=== PATIENT | female | born 1970 | race Caucasian/White ===

== ENCOUNTER → 2016-10-30 | Outpatient (CLI) | payer OTHER ==
[~2016-10-30] MED LIST: ALBU18002 INH; ATOR10TA88 PO; CETI10TA84 PO; CHOL2000 PO; HYDR1SOL10 PO; LEVO100T PO; LEVO112T2 PO; METF750T PO; NITR-5 PO; RIZA10TA18 PO
[2016-10-30 10:08] LABS: ALT/SGPT 31 U/L (12-78); BLOOD UREA NITROGEN 17 mg/dl (7-18); BUN/CREATININE RATIO 18.9 (10-20); CALCIUM 9.1 mg/dl (8.5-10.1); CARBON DIOXIDE 33 mmol/L (21-32); CHLORIDE 104 mmol/L (98-107); CHOLESTEROL 183 mg/dl (0-200); CREATININE 0.91 mg/dl (0.60-1.20); GLUCOSE 98 mg/dl (70-99); POTASSIUM 4.4 mmol/L (3.5-5.1); SODIUM 143 mmol/L (136-145); TRIGLYCERIDES 150 mg/dl (0-150); VERY LOW DENSITY LIPOPROT CALC 30 mg/dl
[2016-10-30 10:10] LABS: INSULIN FASTING 27.9 mU/L (3-25)
[2016-10-30 10:17] LABS: ALKALINE PHOSPHATASE 87 U/L (45-117); AST/SGOT 14 U/L (15-37); CHOLESTEROL/HDL RATIO 3.7; HDL CHOLESTEROL 50 mg/dl; LDL CHOLESTEROL CALCULATED 103 mg/dl; THYROID STIMULATING HORMONE 0.126 uIu/ml (0.300-4.500)
[2016-11-02 15:21] LABS: ILGF1 Z SCORE FEMALE 0.4 SD (-2.0 - +2.0); INSULIN LIKE GROWTH FACTOR-I 174 ng/mL (52-328)
== END | disposition home or self-care (01) ==
LOC: C.LAB1850 07:32
PROVIDERS: ATTEND Internal Medicine Endocrinology, Diabetes & Metabolism
DX: E66.01 Morbid (severe) obesity due to excess calories (principal); E03.9 Hypothyroidism, unspecified; M79.1 Myalgia

== ENCOUNTER → 2016-11-07 | Outpatient (CLI) | payer OTHER ==
[~2016-11-07] MED LIST changes: +ATOR10TA82 PO; -ATOR10TA88 PO
== END | disposition home or self-care (01) ==
LOC: C.LABMFLN 11-07 07:28
PROVIDERS: ATTEND Internal Medicine Endocrinology, Diabetes & Metabolism
DX: E66.01 Morbid (severe) obesity due to excess calories (principal)

== ENCOUNTER → 2016-11-30 | Outpatient (CLI) | payer OTHER ==
[~2016-11-30] MED LIST changes: -ATOR10TA82 PO; +ATOR10TA88 PO; -HYDR1SOL10 PO
== END | disposition home or self-care (01) ==
LOC: C.LABSPEC 12:55
PROVIDERS: ATTEND Family Medicine
DX: J02.9 Acute pharyngitis, unspecified (principal)

== ENCOUNTER → 2017-02-05 | Outpatient (CLI) | payer OTHER ==
[~2017-02-05] MED LIST changes: +ATOR10TA82 PO; -ATOR10TA88 PO
[2017-02-05 14:08] LABS: HEMATOCRIT 37.6 % (37-47); MEAN CELL VOLUME 85.5 fL (80-100); MEAN CORPUSCULAR HEMOGLOBIN 30.9 pg (25-34); MEAN CORPUSCULAR HGB CONC 36.2 g/dl (32-36); MEAN PLATELET VOLUME 9.3 fL (7.4-10.4); PLATELET COUNT 273 K/uL (130-400); WHITE BLOOD COUNT 4.85 K/uL (4.8-10.8)
[2017-02-05 14:27] LABS: CALCIUM 9.2 mg/dl (8.5-10.1)
[2017-02-05 14:32] LABS: ALT/SGPT 45 U/L (12-78); BLOOD UREA NITROGEN 14 mg/dl (7-18); BUN/CREATININE RATIO 15.3 (10-20); CARBON DIOXIDE 28 mmol/L (21-32); CHLORIDE 106 mmol/L (98-107); CHOLESTEROL 204 mg/dl (0-200); CREATININE 0.89 mg/dl (0.60-1.20); GLUCOSE 97 mg/dl (70-99); SODIUM 142 mmol/L (136-145); TRIGLYCERIDES 103 mg/dl (0-150); VERY LOW DENSITY LIPOPROT CALC 21 mg/dl
[2017-02-05 14:42] LABS: ALKALINE PHOSPHATASE 76 U/L (45-117); AST/SGOT 27 U/L (15-37); HDL CHOLESTEROL 51 mg/dl; LDL CHOLESTEROL CALCULATED 132 mg/dl; THYROID STIMULATING HORMONE 0.065 uIu/ml (0.300-4.500)
[2017-02-05 14:47] LABS: EOSINOPHIL % 6.1 %; LYMPH ABS # 1.47 K/uL (1.2-3.4); LYMPHOCYTE % 30.4 %; NEUTROPHILS % 60.9 %
[2017-02-05 15:03] LABS: MDIFF REQUEST DONE
== END | disposition home or self-care (01) ==
LOC: C.LABSPEC 13:11
PROVIDERS: ATTEND Family Medicine
DX: Z00.00 Encounter for general adult medical examination without abnormal findings (principal); E07.89 Other specified disorders of thyroid

== ENCOUNTER → 2017-04-11 | Outpatient (CLI) | payer OTHER ==
[~2017-04-11] MED LIST changes: -ATOR10TA82 PO; +ATOR10TA88 PO
--- NOTE | 2017-04-11 12:47 | MAMMOGRAPHY REPORT ---
BILATERAL DIGITAL SCREENING MAMMOGRAM TOMOSYNTHESIS WITH CAD: 04/11/2017 CLINICAL HISTORY: Routine screening. Patient has no complaints. TECHNIQUE: Breast tomosynthesis in addition to standard 2D mammography was performed. Current study was also evaluated with a Computer Aided Detection (CAD) system. COMPARISON: Comparison is made to exams dated: 04/09/2016 mammogram, 03/31/2015 mammogram, and 4 mammogram - [facility]. BREAST COMPOSITION: There are scattered areas of fibroglandular density in both breasts. FINDINGS: No suspicious masses, calcifications, or areas of architectural distortion are noted in ei ther breast. There has been no significant interval change compared to prior exams. IMPRESSION: ACR BI-RADS CATEGORY 1: NEGATIVE There is no mammographic evidence of malignancy. A 1 year screening mammogram is recommended. The pa tient will receive written notification of the results. Approximately 10% of breast cancers are not detected with mammography. A negative mammographic report should not delay biopsy if a clinically suggestive mass is present. Richelle Nickerson M.D. ah/:04/11/2017 07:49:38 Auto Washer: Tati Esquivel [facility] letter sent: Normal 1/2 BI-RADS Code: ACR BI-RADS Category 1: Negative
== END | disposition home or self-care (01) ==
LOC: C.MAMM 07:24
PROVIDERS: ATTEND Family Medicine
DX: Z12.31 Encounter for screening mammogram for malignant neoplasm of breast (principal)

== ENCOUNTER → 2017-04-12 | Outpatient (CLI) | payer OTHER ==
--- NOTE | 2017-04-13 06:13 | PAP/PSG TECHNICIAN REPORT ---
[facility] Metal Die Finisher Polysomnogram Report Study name: None Report date: 04/13/2017 Study date: 04/12/2017 Referring Physician: BRENDAN Ambriz M.D. Name: NINA OLGUIN Interpreting Physician: Brain Driver D.O. Date of : 1970 Metal Die Finisher: Becky Hollis, PSGT. Sex: Female Age: 47 StudyType: PSG Weight: 213 lbs Height: 47 years, Height 5' 5" Neck Circum: BMI: 35.44 Medications: MAXALT 10 MG, LEVOXYL 112 MCG, MACROBID 100 MG, ALBUTEROL 90 MCG. Patient History 47 YR. OLD FEMALE WHOM HAD UPPP SURGERY IN THE PAST, IS HERE FOR A TITRATION SLEEP STUDY.SHE HAD A BASELINE SLEEP STUDY DONE IN [place] AND STATED THAT SHE HAD MILD TO MODERATE MARIA DEL CARMEN ALONG WITH OXYGEN DESATURATIONS LOW 85 %. Parameters Monitored NPSG: E1-M2, E2-M1, Fp1-M2, Fp2-M1, F3-M2, F4-M2, F4-M1, C3-M2, C4-M2, C4-M1, O1-M2, O2-M2, O2-M1, T3-M2, T4-M1, P3-M2, P4-M1, CHIN1, CHIN2, HR, EKG, Legs, PFLOW, SNOR, FLOW, CFLOW, Tidal Volume, THOR, ABDO, SpO2, PLTH, CPRESS, ETCO2 Wave, ETCO2, pH Sleep Architecture Sleep Stages Time at Lights Off 10:59:02 PM STAGES Time (min.) TST (%) Time at Lights On 5:25:32 AM Wake 26.0 -- Total Recording Time (TRT) 387.50 min. N1 10.0 3 Total Sleep Period (TSP) 364.5 min. N2 165.0 46 Total Sleep Time (TST) 360.5min. N3 15.0 4 Awake Time 27.0 min. REM 170.5 47 Wake after Sleep Onset 13.5 min. Sleep Efficiency (SE) 93 % Sleep Onset Latency (BRYAN) 12.5 min. Number of Stage 1 Shifts None Awakenings 3 Stage Changes 19 Number of REM periods 3 REM 170.5 47 REM Latency 57.0 min. NREM 190.0 53 Body Position Analysis Supine Right Left Side Prone Vertical Total Sleep Time (min.) 0.0 360.5 0.0 360.50 0.0 0.8 Total Sleep Time (%) 0% 100% 0% 100 0% N/A% Total Sleep Time REM (min.) 0.0 170.5 0.0 None 0.0 0.0 Total Sleep Time NREM (min.) 0.0 190.0 0.0 None 0.0 0.0 Intermittent Wake (min.) 0.0 25.2 0.0 None 0.0 0.8 Total Sleep Period (%) 0% None None None None None Arousals Myoclonus (PLM) * Events Count Index Events Count Index Spontaneous 29 5 Events Awake (PLMW) 0 0.0 Respiratory 0 0.0 Events Asleep w/ Arousal (PLMA) 12 2.0 PLM 12 2 Events Asleep w/o Arousal (PLMS) 99 16.5 Snoring 2 0 Total Asleep 111 18.5 Total 43 7 Total 111 17 Respiratory Analysis * CA OA MA CH H RERA Total Count 2 0 0 0 4 2 6 Index 0.3 0.0 0.0 0 0.7 0 1.3 Mean Duration 10.9 0.0 0.0 0.00 14.7 17.3 14.4 Longest Duration 14.0 0.0 0.0 0.00 0.0 18.8 19.2 Respiratory Event Summary Total Supine ~Supine Right Left Prone REM NREM Apneas Count 2 N/A 2 2 N/A N/A 1 1 Index 0.3 N/A 0 0.3 N/A N/A 0 0 Hypopneas (4% Desat) Count 4 N/A 4 4 N/A N/A 1 3 Index 0.7 N/A 1 0.7 N/A N/A 0.4 0.9 Apneas & All Hypopneas Count 6 N/A 6 6 N/A N/A 2 4 Index 1.0 N/A 1 1 N/A N/A 0.7 1.3 Respiratory Events (Ic Design Engineer+All Hyp+RERA) Count 6 N/A 8 8 N/A N/A 2 4 Index 1.3 N/A 1 1.3 N/A N/A 1.1 1.6 Respiratory Related Arousal Count 0 N/A 0 0 N/A N/A 0 0 Index 0.0 N/A 0 0 N/A N/A 0 0 Snoring Analysis Supine Right Left Prone REM NREM Total Snore duration 5.9 min Snores count N/A 214 N/A N/A 37 177 214 Snore mean duration 1.6 Sec Snores index N/A 36 N/A N/A 13.0 55.9 35.6 TST with snoring (%) 1.6% Desaturation Event Summary: Minimum %SpO2 Event Count Mean/Min/Max Duration(sec.) Desaturation Index % Time In Bed > 90 13 20.8 / 7.8 / 60.0 2.1 96.6 86 - 90 2 8.4 / 7.8 / 9.0 9.1 3.4 81 - 85 0 N/A 0.0 0.0 76 - 80 0 N/A 0.0 0.0 71 - 75 0 N/A 0.0 0.0 66 - 70 0 N/A 0.0 0.0 61 - 65 0 N/A 0.0 0.0 56 - 60 0 N/A 0.0 0.0 51 - 55 0 N/A 0.0 0.0 < 50 0 N/A 0.0 0.0 Total REM NREM Awake <50% 0.0 min. 0.0 min. 0.0 min. 0.0 min. 51 - 60% 0.0 min. 0.0 min. 0.0 min. 0.0 min. 61 - 70% 0.0 min. 0.0 min. 0.0 min. 0.0 min. 71 - 80% 0.0 min. 0.0 min. 0.0 min. 0.0 min. 81 - 90% 13.2 min. 2.5 min. 10.7 min. 0.0 min. 91 - 100% 371.4 min. 167.7 min. 179.2 min. 24.5 min. Average 95 96 94 94 Minimum SpO2 87 87 87 91 Desaturation Event Index 2.0 2.5 1.9 0.0 # Desat. Events below 89% 2 1 1 N/A Time(%) with Saturation below 89% 0.1 0.1 0.0 0.0 Time(min.) with Saturation below 89% 0.4 0.3 0.1 0.0 Heart Rate Analysis End Tidal CO2 Analysis Min (bpm) Max (bpm) Average (bpm) TSP (mins) % of TSP Awake 41 104 79 Above 55 mmHg 0.0 0.0 NREM 56 102 72 50-55 mmHg 0.0 0.0 REM 55 101 68 45-50 mmHg 360.5 100.0 Overall 55 102 70 40-45 mmHg 0.0 0.0 35-40 mmHg 0.0 0.0 30-35 mmHg 0.0 0.0 Average ETCO2 0.0 Supplemental O2 Values Minimum O2 level: None Value Start Time End Time Metal Die Finisher Comments PAP Study: MS. OLGUIN slept in the right, positions. No cardiac arrhythmia or PLM's noted. No bruxism noted. CPAP was initiated at +4 CMH2O and up-titrated to an optimal level of +7 CMH2O, which nearly eliminated all respiratory events and snoring. A Medium Res Med Quattro Air was used for the titration. MS. Olguin stated, I did sleep as well as I do when I am in my own bed. The final report will be interpreted and signed by a sleep physician. The completed physician report will then be placed in the patient medical record. Therapy Event: Therapy (cm H20) 0 4 5 6 7 Total Time at Pressure (min.) 1.2 39.6 54.4 55.1 236.2 TST at Pressure (min.) 0.0 28.3 52.9 52.6 226.7 # Periods 1 1 1 1 1 Sleep Onset (min.) N/A 11.3 0.0 0.0 0.0 REM Onset (min.) N/A N/A 28.7 N/A 8.7 Sleep Efficiency % 0 71 97 95 96 Wakefulness (%) 100.0 28.5 2.8 4.5 4.0 Wakefulness (min.) 1.2 11.3 1.5 2.5 9.5 NREM 1 (%) 0.0 8.8 1.8 3.6 1.5 NREM 1 (min.) 0.0 3.5 1.0 2.0 3.5 NREM 2 (%) 0.0 62.6 39.3 91.8 28.9 NREM 2 (min.) 0.0 24.8 21.4 50.6 68.2 NREM 3 (%) 0.0 0.0 27.6 0.0 0.0 NREM 3 (min.) 0.0 0.0 15.0 0.0 0.0 REM (%) 0.0 0.0 28.5 0.0 65.6 REM (min.) 0.0 0.0 15.5 0.0 155.0 # Arousals N/A 0 6 4 33 Arousal Index N/A 0.0 6.8 4.6 8.7 # Snore N/A 1 3 41 169 Snore Index N/A 2.1 3.4 46.8 44.7 AHI N/A 2.1 3.4 1.1 0.3 AHI Supine N/A N/A N/A N/A N/A AHI Non-Supine N/A 2.1 3.4 1.1 0.3 NREM AHI N/A 2.1 3.2 1.1 0.0 REM AHI N/A N/A 3.9 N/A 0.4 RDI N/A 2.1 4.5 2.3 0.3 # Obstructive N/A 0 0 0 0 # Central Ap N/A 1 0 0 1 # Mixed N/A 0 0 0 0 # Hypopneas N/A 0 3 1 0 RERAS N/A 0 1 1 0 Total Respiratory Events N/A 1 4 2 1 Time Below SpO2 89.00% (min.) 0.0 0.0 0.4 0.0 0.0 Mean NREM SpO2 (%) N/A 92 92 95 96 Mean REM SpO2 (%) N/A N/A 92 N/A 97 Mean Sleep SpO2 (%) N/A 92 92 95 96 Min NREM SpO2 (%) N/A 90 87 91 92 Min REM SpO2 (%) N/A N/A 87 N/A 90 Position Supine (min.) 0.0 0.0 0.0 0.0 0.0 Position Non-supine (min.) 0.0 28.3 52.9 52.6 226.7 LM Index Sleep N/A 4.2 17.0 41.1 15.4 LM Index NREM N/A 4.2 9.6 41.1 10.9 LM Index REM N/A N/A 34.8 N/A 17.4 Mean Heart Rate (bpm) N/A 77 78 71 67 Min Heart Rate (bpm) N/A 72 65 63 55
--- NOTE | 2017-04-16 19:51 | Sleep Study ---
Sleep Study Report Date of Service: 04/12/2017 Sleep Study Report Clinical data: A 47-year-old female with a BMI of 35.[address] Ambriz for a titration study. The patient had a history of sleep apnea in the past. She was on nasal CPAP for about 1 year but was not comfortable. She has had a prior UPPP surgery. Her original sleep study was done elsewhere and reportedly was mild sleep apnea. This was an in-lab CPAP titration study. Sleep architecture: The total sleep period was 364.5 minutes. The total sleep time was 360.5 minutes. Sleep efficiency was normal at 93%. Sleep latency was normal at 12.5 minutes. Wake after sleep onset was 13.5 minutes. REM latency was normal at 57 minutes. Sleep consisted of stage N1 3%, stage N2 46%, stage N3 4%, and stage REM 47%. Arousal data: The patient had a total of 43 arousals including 29 spontaneous arousals, 12 PLM arousals, and 2 snoring arousals. The arousal index was 7. PLM data: The patient had 111 periodic limb movements of sleep for a PLM index of 18.5. There were 12 arousals associated with limb movements for a PLM arousal index of 2.0. EKG: The underlying cardiac rhythm was normal sinus. The cardiac rates ranged from 55 to 102 beats per minute. The average heart rate was 70 beats per minute. No significant arrhythmia was present. Respiratory data: The patient's respiratory events were treated with nasal CPAP. There was a total of 6 respiratory events including 2 central apneas and 4 hypopneas. Hypopneas were scored according to the 4% desaturation rule. The longest apnea was 14 seconds. The mean duration of the hypopneas was 14.7 seconds. The apnea -hypopnea index was normal at 1.0. The patient also had 2 RERAs. Oximetry data: The average saturation was 95%. The minimum saturation was 87%. There was only 0.4 minutes with saturations less than 89%. Actimize Architect comments: The patient slept on the right side. No cardiac arrhythmia noted. No bruxism noted. CPAP was initiated at 4 cm and up titrated to an optimal level of 7 cm. This nearly eliminated all respiratory events and snoring. A medium ResMed Quattro air was used for the titration. The patient indicated she slept as well as she does in her own bed. Impressions: 1. Obstructive sleep apnea-resolved with nasal CPAP at 7 cm Comments: The patient slept very well. Her sleep efficiency was normal. She had significant REM rebound with 47% of the night being REM sleep. There was a mild number of arousals. She did have a modest number of limb movements. This is not unusual with resolution of sleep disordered breathing. Her oxygenation was normal. Her sleep was very well consolidated. Recommendations: 1. It is suggested that the patient be started on nasal CPAP at 7 cm. 2. It is suggested that she be ordered a medium ResMed Med Quattro air mask. 3. The patient has an elevated body mass index of 35.44. A weight reduction program is advised as there is typically less sleep apnea following weight loss. 4. The patient should be seen back in follow-up between day 31 day 90 after receiving of the CPAP. Compliance data should be obtained. Copies To 1: Brain Driver DO; Maday Ambriz M.D.
== END | disposition home or self-care (01) ==
LOC: C.NEUR 20:00
PROVIDERS: ATTEND Family Medicine
DX: G47.33 Obstructive sleep apnea (adult) (pediatric) (principal)

== ENCOUNTER → 2017-05-08 | Outpatient (CLI) | payer OTHER ==
[2017-05-08 17:52] LABS: BASO % 0.5 %; BASO ABS # 0.03 K/uL (0-0.2); COMPLETE YES; EOS % 2.9 %; IG% 0.3 %; LYMPH % 28.9 %; LYMPH ABS # 1.72 K/uL (1.2-3.4); MEAN CELL VOLUME 86.5 fL (80-100); MEAN CORPUSCULAR HEMOGLOBIN 30.8 pg (25-34); MEAN CORPUSCULAR HGB CONC 35.6 g/dl (32-36); MEAN PLATELET VOLUME 9.1 fL (7.4-10.4); MONO % 9.2 %; NEUT % 58.2 %; PLATELET COUNT 239 K/uL (130-400); RED BLOOD COUNT 4.51 M/uL (4.2-5.4); WHITE BLOOD COUNT 5.95 K/uL (4.8-10.8)
[2017-05-08 17:53] LABS: PARTIAL THROMBOPLASTIN RATIO 1.1; PROTHROMBIN TIME (PATIENT) 10.7 SECONDS (9.0-12.0)
== END | disposition home or self-care (01) ==
LOC: C.LABMFLN 12:30
DX: Z01.818 Encounter for other preprocedural examination (principal)

== ENCOUNTER → 2017-05-27 | Day surgery (SDC) | payer OTHER ==
[2017-05-14 08:58] VITALS: Ht 149.9 cm; Wt 95.9 kg
[~2017-05-27] VITALS: Ht 149.9 cm; Wt 95.9 kg
[~2017-05-27] MED LIST changes: +ATROPINE SULFATE 0.1 MG/ML 5ML SYR IV PRN; +CLINDAMYCIN PHOS 150 MG/ML 2 ML VIAL IV SCH; +DEXAMETHASONE SOD INJ 4 MG/ML VIAL ONE; +EpHEDrine SULFATE INJ 50 MG/ML AMP IV PRN; +FENTANYL CITRATE INJ 50 MCG/1 ML 2 ML VIAL IV PRN; +FENTANYL CITRATE INJ 50 MCG/1 ML 2 ML VIAL ONE; +FLUMAZENIL 0.1 MG/1 ML 10 ML VIAL IV PRN; +HYDROCODONE/APAP 2.5MG/108MG ELIX 5 ML UDP PO PRN; +HYDROmorphone INJ 2 MG/ML SYR/VIAL IV PRN; +LABETALOL HCL IV 5 MG/ML 20ML IV PRN; +LACTATED RINGER'S 1000ML 1,000 ML IV SCH; -LEVO112T2 PO; +LIDOCAINE HCL 2% 2 ML VIAL (20MG/ML) ONE; +LIDOCAINE/EPINEPHRINE 1% INJ 50 ML VIAL ONE; +MEPERIDINE HCL 25 MG/ML CARP IV PRN; +MIDAZOLAM HCL 1 MG/ML 2ML VIAL ONE; +NALOXONE HCL 0.4 MG/1 ML VIAL/CARP IV PRN; +ONDANSETRON INJ 2 MG/ML 2 ML VIAL IV PRN; +ONDANSETRON INJ 2 MG/ML 2 ML VIAL ONE; +PHENYLEPHRINE 100MCG/ML 5ML SYR IV PRN; +PROPOFOL IV EMULSION 10 MG/ML 20 ML VIAL IV ONE
--- NOTE | 2017-05-27 10:43 | History & Physical Bridge - [place] ---
H&P Re-Evaluation Bridge Note: I have examined the patient, reviewed the History & Physical and in the interval since the performance of the History & Physical I have noted the following changes of clinical significance: No changes noted
--- NOTE | 2017-05-27 11:27 | [facility] Operative Report ---
Operative Report Operative Date May 27, 2017. Pre-Operative Diagnosis Soft Palate Lesions Post-Operative Diagnosis Same Procedure(s) Performed EXCISIONAL BIOPSY OF TWO SOFT PALATE LESIONS Surgeon Dr. Mao Director Energy Surgeon(s) None Estimated Blood Loss 5 mL Findings 2 PEDUNCULATED SOFT PALATE LESIONS Specimens A. Left Soft Palate Lesion B. Right Soft Palate Lesion I attest to the content of the Intraoperative Record and any orders documented therein. Any exceptions are noted below.
--- NOTE | 2017-05-27 11:29 | Discharge Instructions ---
Discharge Instructions Date of Service May 27, 2017. Admission Reason for Admission: Lesions Of Soft Palate Discharge Discharge Diagnosis / Problem: SAME Discharge Goals Goal(s): Diagnostic testing Activity Recommendations Activity Limitations: as noted below LIGHT ACTIVITY FOR 3 DAYS; NO DRIVING WHILE ON NORCO . Current Hospital Diet Patient's current hospital diet: Regular Diet Discharge Diet Recommended Diet: Regular Diet Procedures Procedures Performed: EXCISIONAL BIOPSY OF TWO SOFT PALATE LESIONS Pending Studies Studies pending at discharge: no Medical Emergencies . Who to Call and When: Medical Emergencies: If at any time you feel your situation is an emergency, please call 911 immediately. . Non-Emergent Contact Non-Emergency issues call your: Surgeon . . "Provider Documentation" section prepared by Miller Mao. . VTE Core Measure Inpt VTE Proph given/why not?: SCD's
--- NOTE | 2017-05-27 12:10 | OPERATIVE REPORT ---
DATE OF OPERATION: 05/27/2017 PREOPERATIVE DIAGNOSIS: Soft palate lesions. POSTOPERATIVE DIAGNOSIS: Soft palate lesions. PROCEDURE: Excisional biopsy of 2 soft palate lesions. SURGEON: Dr. Miller Mao. ANESTHESIA: General endotracheal. ESTIMATED BLOOD LOSS: 5 mL. FINDINGS: Two pedunculated small papillomatous lesions involving the soft palate. SPECIMENS: Right and left soft palate lesion sent off for permanent pathological assessment. COMPLICATIONS: None. INDICATIONS FOR THE PROCEDURE: The patient is a 47-year-old female who underwent tonsillectomy, adenoidectomy, uvulectomy, and septoplasty by Dr. Ambriz last year and developed some soft palate lesions superior to the uvulectomy site. They appear to be papillomatous lesions and may represent squamous papilloma versus something else. These did not look malignant, but for diagnostic purposes, I recommended excisional biopsy. She presents today for the above-mentioned procedure on an outpatient elective basis. DESCRIPTION OF PROCEDURE: After an informed consent had been obtained from the patient, the patient was wheeled to the operating room and placed on the operating table in the supine position. Monitors were placed. After induction of general endotracheal anesthesia, the table was turned 90 degrees and the patient's head and neck were gently extended. A total of 0.6 mL of 1% lidocaine with 1:100,000 epinephrine was used to inject the mucosa and submucosa surrounding the 2 pedunculated soft palate lesions. There was 1 to the left of the midline and 1 to the right of midline just superior to a uvulectomy site. After allowing adequate time for vasoconstriction and anesthesia, a #15 scalpel was used to make an elliptical incision around the 2 pedunculated soft palate lesions. These were sent separately for permanent pathologic assessment. Suction Bovie electrocautery was used to achieve adequate hemostasis. The 2 elliptical incisions were closed with 1 simple interrupted 4-0 chromic suture. An orogastric tube was placed and the stomach was suctioned free of air and stomach contents. This marked the end of the case. The patient tolerated the procedure well and there were no apparent complications. The patient was extubated and transferred to recovery room in stable condition. I attest to the content of the Intraoperative Record and any orders documented therein. Any exception s are noted below.
[2017-05-27 12:28] VITALS: TEMP 36.5
--- NOTE | 2017-05-27 12:36 | Anesthesia Progress Nt - [facility] ---
Anesthesia Post Op Note Date & Time May 27, 2017 at 12:36 Vital Signs Pain Intensity: 2 Vital Signs Past 12 Hours Date Time Temp Pulse Resp B/P (MAP) Pulse Ox O2 Delivery O2 Flow Rate FiO2 05/27/17 12:28 36.5 76 16 126/81 (96) 98 Room Air 05/27/17 12:06 36.9 131/66 05/27/17 12:05 85 14 97 05/27/17 12:05 84 14 05/27/17 12:01 125/67 05/27/17 12:00 84 16 96 05/27/17 12:00 86 16 05/27/17 11:56 121/66 05/27/17 11:55 91 22 05/27/17 11:55 95 22 98 05/27/17 11:51 116/72 05/27/17 11:50 83 19 05/27/17 11:50 82 19 100 05/27/17 11:46 111/72 05/27/17 11:45 90 23 99 05/27/17 11:45 90 23 05/27/17 11:41 106/67 05/27/17 11:40 102 19 05/27/17 11:40 99 19 100 05/27/17 11:36 36.4 99 20 112/68 97 Mask 6 05/27/17 11:36 112/68 05/27/17 11:35 98 05/27/17 11:35 98 97 05/27/17 10:49 36.7 77 18 124/79 (94) 98 Room Air Notes Mental Status: alert / awake / arousable, participated in evaluation Pt Amnestic to Procedure: Yes Nausea / Vomiting: adequately controlled Pain: adequately controlled Airway Patency, RR, SpO2: stable & adequate BP & HR: stable & adequate Hydration State: stable & adequate Anesthetic Complications: no major complications apparent
[2017-05-27 12:41] VITALS: BP 119/83; PULSE 69; O2SAT 99
== END | disposition home or self-care (01) ==
LOC: X.SURG 10:35
DX: D10.39 Benign neoplasm of other parts of mouth (principal); K13.79 Other lesions of oral mucosa; M26.629 Arthralgia of temporomandibular joint, unspecified side; H90.3 Sensorineural hearing loss, bilateral; E03.9 Hypothyroidism, unspecified; E66.01 Morbid (severe) obesity due to excess calories; R73.03 Prediabetes; G47.30 Sleep apnea, unspecified; E55.9 Vitamin D deficiency, unspecified; Z82.49 Family history of ischemic heart disease and other diseases of the circulatory system; Z82.5 Family history of asthma and other chronic lower respiratory diseases; Z83.3 Family history of diabetes mellitus; Z80.1 Family history of malignant neoplasm of trachea, bronchus and lung; Z87.891 Personal history of nicotine dependence; Z79.84 Long term (current) use of oral hypoglycemic drugs; Z79.899 Other long term (current) drug therapy

== ENCOUNTER → 2017-12-10 | Outpatient (CLI) | payer OTHER ==
[~2017-12-10] MED LIST changes: +ATOR10TA82 PO; -ATOR10TA88 PO; -ATROPINE SULFATE 0.1 MG/ML 5ML SYR IV PRN; -CLINDAMYCIN PHOS 150 MG/ML 2 ML VIAL IV SCH; -DEXAMETHASONE SOD INJ 4 MG/ML VIAL ONE; -EpHEDrine SULFATE INJ 50 MG/ML AMP IV PRN; -FENTANYL CITRATE INJ 50 MCG/1 ML 2 ML VIAL IV PRN; -FENTANYL CITRATE INJ 50 MCG/1 ML 2 ML VIAL ONE; -FLUMAZENIL 0.1 MG/1 ML 10 ML VIAL IV PRN; -HYDROCODONE/APAP 2.5MG/108MG ELIX 5 ML UDP PO PRN; -HYDROmorphone INJ 2 MG/ML SYR/VIAL IV PRN; -LABETALOL HCL IV 5 MG/ML 20ML IV PRN; -LACTATED RINGER'S 1000ML 1,000 ML IV SCH; -LIDOCAINE HCL 2% 2 ML VIAL (20MG/ML) ONE; -LIDOCAINE/EPINEPHRINE 1% INJ 50 ML VIAL ONE; -MEPERIDINE HCL 25 MG/ML CARP IV PRN; -MIDAZOLAM HCL 1 MG/ML 2ML VIAL ONE; -NALOXONE HCL 0.4 MG/1 ML VIAL/CARP IV PRN; -ONDANSETRON INJ 2 MG/ML 2 ML VIAL IV PRN; -ONDANSETRON INJ 2 MG/ML 2 ML VIAL ONE; -PHENYLEPHRINE 100MCG/ML 5ML SYR IV PRN; -PROPOFOL IV EMULSION 10 MG/ML 20 ML VIAL IV ONE
== END | disposition home or self-care (01) ==
LOC: C.LABSPEC 13:02
PROVIDERS: ATTEND Family Medicine
DX: E03.9 Hypothyroidism, unspecified (principal)

== ENCOUNTER → 2018-04-10 | Day surgery (SDC) | payer OTHER ==
[2018-03-31 16:11] VITALS: BMI 44.0
[~2018-04-10] VITALS: Ht 149.9 cm; Wt 97.8 kg
[~2018-04-10] MED LIST changes: +ATROPINE SULFATE 0.1 MG/ML 5ML SYR IV PRN; +BUPIVACAINE/EPINEPHRINE 0.5% MPF 1:200,000 30 ML VIAL ONE; +CEFAZOLIN 2000MG IV PUSH 15 ML IV SCH; +EpHEDrine SULFATE INJ 50 MG/ML AMP IV PRN; +FENTANYL CITRATE INJ 50 MCG/1 ML 2 ML VIAL IV PRN; +FENTANYL CITRATE INJ 50 MCG/1 ML 2 ML VIAL ONE; +FLUCONAZOLE 200MG / NSS IV SCH; +HYDR-5688 PO; +HYDROCODONE/ACETAMIN 5/325MG TAB PO PRN; +HYDROmorphone INJ 1 MG/ML SYR IV PRN; +LACTATED RINGER'S 1000ML 1,000 ML IV SCH; +LIDOCAINE HCL 2% 2 ML VIAL (20MG/ML) ONE; -METF750T PO; +METOCLOPRAMIDE HCL INJ 5 MG/ML 2 ML VIAL IV PRN; +MIDAZOLAM HCL 1 MG/ML 2ML VIAL ONE; +MONT1TAB3 PO; +NURSING VERBAL MED ORDER ONE; +ONDANSETRON INJ 2 MG/ML 2 ML VIAL IV PRN; +ONDANSETRON INJ 2 MG/ML 2 ML VIAL ONE; +PANT40TA PO; +PROPOFOL IV EMULSION 10 MG/ML 20 ML VIAL ONE; +SODIUM CHLORIDE 0.9% 1000ML 1,000 ML IV SCH
[2018-04-10 09:15] VITALS: BP 169/65; PULSE 81; TEMP 37; O2SAT 96; Ht 149.9 cm; Wt 97.8 kg
--- NOTE | 2018-04-10 09:31 | DIAGNOSTIC IMAGING REPORT ---
Study: Localization right cervical region HISTORY: Lymph node. FINDINGS: Following description of procedure and informed consent, a 3 cm Chaney 2 needle was advanced to the margin of the lymph node in question. The locking needle was advanced and secured. There are no complications. IMPRESSION: Successful needle localization right lateral cervical lymph node. Electronically signed by: Reji Huber M.D. 04/10/2018 9:30 AM Dictated Date/Time: 04/10/2018 9:28 AM
--- NOTE | 2018-04-10 09:38 | Discharge Instructions ---
Discharge Instructions Date of Service Apr 10, 2018. Admission Reason for Admission: Right Neck Lymphadenopathy Discharge Discharge Diagnosis / Problem: lymphadenopathy Discharge Goals Goal(s): Diagnostic testing Activity Recommendations Activity Limitations: as noted below Lifting Limitations: gradually increase as tolerated May Resume Sexual Activity: when tolerated Shower/Bathe: tomorrow . Current Hospital Diet Patient's current hospital diet: Discharge Diet Recommended Diet: Regular Diet Pending Studies Studies pending at discharge: yes List of pending studies: pathology report Laboratory Results Lipid Panel Test 02/18/18 10:15 Range/Units Triglycerides Level 175 H 0-150 mg/dl Cholesterol Level 147 0-200 mg/dl HDL Cholesterol 52 mg/dl Cholesterol/HDL Ratio 2.8 LDL Cholesterol, Calculated 60 mg/dl Medical Emergencies . Who to Call and When: Medical Emergencies: If at any time you feel your situation is an emergency, please call 911 immediately. . Non-Emergent Contact Non-Emergency issues call your: Primary Care Provider, Surgeon Call Non-Emergent contact if: temperature is above 101, wound has increased drainage, wound has increased redness, wound has increased pain . "Provider Documentation" section prepared by Jose De Jesus Strong. .
--- NOTE | 2018-04-10 11:07 | History & Physical Bridge Note ---
H&P Re-Evaluation Bridge Note: I have examined the patient, reviewed the History & Physical and in the interval since the performance of the History & Physical I have noted the following changes of clinical significance: No changes noted. needle in place. will be a right side neck node excision.
--- NOTE | 2018-04-10 12:40 | [facility] Post Operative Brief Note ---
Immediate Operative Summary Operative Date Apr 10, 2018. Pre-Operative Diagnosis Lymphadenopathy of the Neck Post-Operative Diagnosis Lymphadenopathy of the Neck Procedure(s) Performed Right Excisional Neck Lymph Node Biopsy Surgeon Dr. Strong Health Education Director Surgeon(s) GIOVANNI Gordon Estimated Blood Loss 3 ml Findings Consistent with Post-Op Diagnosis Specimens A. Right Deep Cerival Lymph Node (Fresh)--sent to lab at 1238 Anesthesia Type General Complication(s) none
--- NOTE | 2018-04-10 13:01 | [facility] Operative Report ---
Operative Report Operative Date Apr 10, 2018. Pre-Operative Diagnosis Lymphadenopathy of the Neck Post-Operative Diagnosis Lymphadenopathy of the Neck Procedure(s) Performed Right Excisional Neck Lymph Node Biopsy Surgeon Dr. Strong Reheat Furnace Operator Surgeon(s) GIOVANNI Gordon Estimated Blood Loss 3 ml Specimens A. Right Deep Cervical Lymph Node (Fresh)--sent to lab at 1238 Anesthesia Type General Complication(s) none Description of Procedure Prior to coming to the operating room the patient was taken to radiology where a needle localization was performed on a right cervical lymph node. The patient was then brought to the operating room and placed in supine position. An LMA was placed and the patient head was turned to the left. We cut the wire down to within about half an inch of the skin and then sterilely prepped and draped the area. An incision was made just superior to the entrance point of the guidewire. Electrocautery was used to carry this down through the soft tissue. We were then able to deliver the guidewire into the wound itself. Using retraction and primarily blunt dissection with small amounts of electrocautery we were able to tediously follow the guidewire towards the lymph node. The lymph node was rather deep. Eventually we were able to identify it and pull it with traction/ countertraction. Again around the node itself the dissection was done primarily bluntly with a right angle clamp. We used small bits of electrocautery to eventually we were able to deliver the entire lymph node whole into the wound and remove it. It was sent to pathology. The wound was thoroughly irrigated. There was adequate hemostasis. We closed the deep muscular layer using 2-0 Vicryl in interrupted fashion. Soft tissue was closed using 3-0 Vicryl and skin was closed using 4-0 Monocryl. Marcaine was injected around the area for postoperative analgesia. Benzoin and Steri-Strips were applied. The patient was awakened, extubated and transferred to recovery in stable condition. My physician resident programs assistant was present for the entire case. He helped prep the patient. He helped with retraction during the entire dissection. He also helped with wound closure and dressing placement. I attest to the content of the Intraoperative Record and any orders documented therein. Any exceptions are noted below.
[2018-04-10 13:35] VITALS: BP 137/62; PULSE 81; TEMP 36.4; O2SAT 95
--- NOTE | 2018-04-10 13:51 | Anesthesiology Progress Note ---
Anesthesia Post Op Note Date & Time Apr 10, 2018 at 13:51 Vital Signs Pain Intensity: 0 Vital Signs Past 12 Hours Date Time Temp Pulse Resp B/P (MAP) Pulse Ox O2 Delivery O2 Flow Rate FiO2 04/10/18 13:30 83 16 120/86 95 Room Air 04/10/18 13:20 36.3 87 16 126/75 95 Room Air 04/10/18 13:10 95 16 105/69 96 Room Air 04/10/18 13:00 93 16 116/75 98 Oxymask 5 04/10/18 12:50 36.2 87 18 102/70 98 Oxymask 5 04/10/18 09:15 37 81 20 169/65 (99) 96 Room Air Notes Mental Status: alert / awake / arousable, participated in evaluation Pt Amnestic to Procedure: Yes Nausea / Vomiting: adequately controlled Pain: adequately controlled Airway Patency, RR, SpO2: stable & adequate BP & HR: stable & adequate Hydration State: stable & adequate Anesthetic Complications: no major complications apparent
== END | disposition home or self-care (01) ==
LOC: C.ACU 07:53
PROVIDERS: ATTEND Surgery
DX: R59.9 Enlarged lymph nodes, unspecified (principal); J45.909 Unspecified asthma, uncomplicated; E03.9 Hypothyroidism, unspecified; Z68.41 Body mass index [BMI] 40.0-44.9, adult; E66.01 Morbid (severe) obesity due to excess calories; G47.30 Sleep apnea, unspecified; Z87.891 Personal history of nicotine dependence; Z79.899 Other long term (current) drug therapy; Z88.2 Allergy status to sulfonamides; Z88.1 Allergy status to other antibiotic agents; Z79.84 Long term (current) use of oral hypoglycemic drugs